=== PATIENT | male | born 1955 | race Two or more races ===

== ENCOUNTER 2020-07-07 07:42 | Emergency (ER) | payer OTHER ==
[~2020-07-07] VITALS: Ht 167.6 cm; Wt 81.6 kg
[2020-07-07] MEDS ORDERED: TETRACAINE HCL 0.5% OPTH(EYE) SOLN 4ML RIGHTEYE ONE (08:15)
[2020-07-07] MEDS ORDERED: FLUORESCEIN SOD 1 MG TEST STRIP RIGHTEYE ONE (08:15)
[2020-07-07 10:01] VITALS: BP 132/61
== END 2020-07-07 10:05 | disposition home or self-care (01) ==
LOC: ER 07:42
DX: S05.01XA Injury of conjunctiva and corneal abrasion without foreign body, right eye, initial encounter (principal); H16.001 Unspecified corneal ulcer, right eye; E11.9 Type 2 diabetes mellitus without complications; X58.XXXA Exposure to other specified factors, initial encounter; Y93.89 Activity, other specified; Y92.89 Other specified places as the place of occurrence of the external cause; Y99.8 Other external cause status